=== PATIENT | female | born 1945 | race Caucasian/White ===

== ENCOUNTER 2023-10-19 14:57 | Outpatient (OUT) | payer MEDICARE, OTHER, SELFPAY ==
--- NOTE | 2023-10-19 15:10 | CA_ITS ---
Patient Name: LANNY ZEPEDA MR#: [id number] : 1945 Exam Date: 10/19/2023 Ordering Doctor: GLORIA ALBRECHT M.D. ECHOCARDIOGRAM REPORT PROCEDURE: CA ECHO DOPPLER COMPLETE INDICATIONS: Left bundle-branch block, unspecified COMPARISON: None. DESCRIPTION: COMPLETE ECHOCARDIOGRAM Real-time transthoracic echocardiography with 2D, M-mode, spectral and color flow Doppler performed. QUALITY: Technical quality was good. LEFT VENTRICLE: Normal chamber size. Mild concentric left ventricular hypertrophy. Global left ventricular systolic function is normal. Abnormal septal motion is seen likely due to bundle branch block. LV EF: Estimated left ventricular ejection fraction is 60%. DIASTOLIC: Diastolic function is indeterminate. ATRIAL SEPTUM: LEFT ATRIUM: Mild dilatation. RIGHT ATRIUM: Mild dilatation. RIGHT VENTRICLE: Normal chamber size. Normal right ventricular systolic function. TRICUSPID VALVE: Normal mobility and thickness. No stenosis with mild regurgitation. No evidence of pulmonary hypertension. RVSP 29 mmHg MITRAL VALVE: Normal mobility and thickness. No evidence of mitral valve stenosis. There is no mitral annular calcification. Trivial mitral regurgitation. AORTIC VALVE: Normal trileaflet appearance. No visible sclerosis. Normal leaflet mobility. No evidence of aortic valve stenosis. No aortic regurgitation. AORTIC ROOT: Normal diameter and appearance. PULMONIC VALVE: Normal thickness and mobility. No stenosis. Trivial regurgitation. PERICARDIUM: No evidence of pericardial effusion. IVC: Collapses with inspirations. Normal size. PLEURA: CONCLUSION: 1. Mild concentric left ventricular hypertrophy with normal systolic function. LVEF is estimated at 60%. 2. Normal right ventricular size and systolic function. 3. Mild biatrial dilatation. 4. No significant valvular dysfunction. 5. Normal right-sided pressures. 6. No pericardial effusion. Adult Echocardiography Procedure Report Left Ventricle LVEDD (3.7 - 5.6 cm): 4.43 cm LVESD (2.2 - 4.0 cm): 3.13 cm LVIVS thickness (0.6 - 1.2 cm): 1.18 cm LVPW thickness (0.5 - 1.0 cm): 1.12 cm e': 0.06 m/s E - e': 9.82 LVOT Max Gradient: 2.51 mm[Hg] LVOT Area (cm2): 0.79 m/s Peak Velocity (LVOT): 0.79 m/s Mean Velocity (LVOT): 0.56 m/s LVOT Diameter 2.07 cm Left Ventricular Ejection Fraction: 60 % Left Atrium LA Volume Index (2D A2C): 31.21 ml/m2 Left Atrium Systolic Dimension: 3.69 cm Mitral Valve MV E to A Ratio: 0.66 Mitral Valve A-Wave Peak Velocity: 0.94 m/s Mitral Valve E-Wave Peak Velocity: 0.62 m/s Right Ventricle RV Internal Diastolic Dimension: 3.03 cm Aorta AO Root Diam: 2.64 cm Ascending Ao Diam: 2.36 cm Aortic Valve AoV Area (Peak Kapil): 1.85 cm2, 1.85 cm2 AoV Area (VTI): 1.73 cm2, 1.73 cm2 Peak Velocity(Antegrade Flow): 1.44 m/s Peak Gradient(Antegrade Flow): 8.28 mm[Hg] Mean Velocity(Antegrade Flow): 0.97 m/s Mean Gradient(Antegrade Flow): 4.31 mm[Hg] Velocity Time Integral: 31.83 cm Tricuspid Valve Peak Velocity (Regurgitant Flow): 2.42 m/s, 2.50 m/s, 2.57 m/s Pulmonic Valve Mean Gradient: 3.79 mm[Hg], 4.15 mm[Hg] Mean Velocity: 0.89 m/s, 0.93 m/s Peak Velocity: 1.54 m/s Peak Gradient: 9.27 mm[Hg], 9.71 mm[Hg] Right Atrium Right Atrium Systolic Pressure: 42.86 ml, 42.86 ml Dictated by: Lakhwinder Zhou M.D. on 10/19/2023 at 18:28 Approved by: Lakhwinder Zhou M.D. on 10/19/2023 at 18:31
== END 2023-10-19 14:58 | disposition home or self-care (01) ==
LOC: CARD 15:04
PROVIDERS: PCP Internal Medicine; Visit Provider Internal Medicine Cardiovascular Disease
DX: I44.7 Left bundle-branch block, unspecified (principal)
CPT/HCPCS: 93306